=== PATIENT | male | born 1995 | race Caucasian/White ===

== ENCOUNTER 2022-01-02 08:09 | Emergency (ER) | payer BC, SELFPAY ==
--- NOTE | ~2022-01-02 | XR_ITS ---
EXAMINATION: XR abdomen obstructive series DATE: 01/02/2022 08:46 INDICATION: Diarrhea for 3 weeks TECHNIQUE: Supine and upright views of the abdomen. FINDINGS: No prior studies for comparison. The visualized lung parenchyma is normal.. There is a nonobstructive bowel gas pattern. Gas and stool are seen throughout the colon to the level of the rectum. There is no free air. IMPRESSION: 1. No acute abdominal abnormality. Reviewed, dictated and finalized at location B.
--- NOTE | 2022-01-02 08:10 | ED.ABDPAIN ---
HPI - Abdominal Pain General Stated Complaint: stomach/digestive issues Time Seen by Provider: 01/02/22 08:10 Source: patient Mode of arrival: ambulatory Limitations: no limitations History of Present Illness HPI narrative: Carlos is a 26-year-old male patient presenting to clinic today with complaints of diarrhea x1 week. He reports that he has approximately 3 diarrhea stools daily x 3 days. States there was blood in his stool last night but none this morning- blood was darker in color. Also reports that he feels as though his belly is rumbling moreso at night. He denies any fever or chills. Reports some abdomen cramping that comes in goes in the morning and evening throughout his abdomen. Denies feeling bloated. No diet changes. No nausea or vomiting. No history of constipation, bowel obstruction, UC, Crohns, Celiacs, or IBS. Tried cutting out diary a few days ago and eating toast this morning. Related Data Home Medications Medication Instructions Recorded Confirmed No Home Medications 01/02/22 01/02/22 Allergies Allergy/AdvReac Type Severity Reaction Status Date / Time No Known Allergies Allergy Unverified 02/14/17 10:43 Review of Systems Review of Systems: Pertinent positives per HPI. Patient denies any fever, chills, rash, headache, visual changes, dizziness, cough, runny nose, sore throat, shortness of breath, chest pain, palpitations, nausea, vomiting, constipation,or any urinary issues. PMFSH Comments At the time of my signature, I reviewed and agree with the nursing past medical, surgical, social, and family history. There is no relevant family history pertinent to the patient complaint. Exam Narrative: General: Well-developed, well nourished, in no apparent distress. Head: Normocephalic, atraumatic. Cardio: Regular rate and rhythm, s1 and s2 normal, no murmur appreciated. Resp: Clear to auscultation bilaterally, no rhonchi, rales, wheezing or rubs. Abdomen: Soft, pliable, bowel sounds present in all quadrants, mildly tender to palpation in all four quadrants, no organomegly, no CVAT tenderness. Course Course Emergency Course: Portions of this record may have been created with voice recognition software. Level of Care: Express Care Visit Vital Signs Vital signs: Vital signs reviewed MDM - Abdominal Pain MDM Narrative Medical decision making narrative: At the time of visit patient is resting comfortably on the exam table. X-ray was obtained and shows no obvious sign of obstruction, perforation, constipation, or impaction. I suspect the patient has gastroenteritis. Supportive measures were discussed with the patient he voiced understanding of discharge instructions and agrees to the treatment plan. Differential Diagnosis Differential diagnosis: Likely abdominal pain, constipation, diverticulitis, gastroenteritis and other ( acute infectious diarrhea) Imaging Data Radiologist's impression: Close Abdomen X-Ray (Signed) Omer Novak - 01/02/22 Launch?[facility] [place] [id number] XRay Report Signed Patient: Carlos Marc : 1995 MR#: [id number] Age/Sex: 26 / M Acct:[id number] Loc: [facility]? ? ADM Date: 01/02/22Attending Dr: Ordering Physician: Dwayne Galvan APRN Date of Service: 01/02/22 Procedure(s): XR abdomen obstructive series Accession Number(s): [id number] cc: Dwayne Galvan APRN; MEDIA ACCOUNT EXECUTIVE PHYSICIAN~ EXAMINATION: XR abdomen obstructive series DATE: 01/02/2022 08:46 INDICATION: Diarrhea for 3 weeks TECHNIQUE: Supine and upright views of the abdomen. FINDINGS: No prior studies for comparison. The visualized lung parenchyma is normal.. There is a nonobstructive bowel gas pattern. Gas and stool are seen throughout the colon to the level of the rectum.? There is no free air. IMPRESSION: 1.? No acute abdominal abnormality.
[2022-01-02 08:19] VITALS: BP 158/89; PULSE 83; RESP 16; TEMP 37.1; O2SAT 100
== END 2022-01-02 09:12 | disposition home or self-care (01) ==
PROVIDERS: Emergency Provider Nurse Practitioner Family
DX: K52.9 Noninfective gastroenteritis and colitis, unspecified (principal)
CPT/HCPCS: 74019; 99203; G0463